=== PATIENT | male | born 1985 | race Caucasian/White ===

== ENCOUNTER 2023-09-17 22:21 | Emergency (ER) | payer OTHER ==
[~2023-09-17] VITALS: Ht 177.8 cm; Wt 108.9 kg
[2023-09-17] MEDS ORDERED: METFORMIN HYD1000 MG PO (22:49)
[2023-09-17] MEDS ORDERED: TRULICITY3 MG/0.5 M SQ (22:50)
[2023-09-17] MEDS ORDERED: TRULICITY1.5 MG/0.5 SC (22:50)
[2023-09-17] MEDS ORDERED: FARXIGA10 M1 PO (22:51)
[2023-09-17] MEDS ORDERED: NURTEC ODT75 MG PO (22:51)
[2023-09-17] MEDS ORDERED: VITAMIN B-121000 MC2 PO (22:52)
[2023-09-17] MEDS ORDERED: EMGALITY S120 MG/1 M SQ (22:52)
[2023-09-17] MEDS ORDERED: D3-200050 MCG PO (22:53)
[2023-09-18] MEDS ORDERED: AMOX-CLAV 875-1 EACH PO (00:29)
[2023-09-18] MEDS ORDERED: PREDNISONE50 MG PO (00:48)
== END 2023-09-18 02:00 | disposition home or self-care (01) ==
LOC: ED 22:21
DX: J02.8 Acute pharyngitis due to other specified organisms (principal); E11.9 Type 2 diabetes mellitus without complications; G43.909 Migraine, unspecified, not intractable, without status migrainosus; Z88.8 Allergy status to other drugs, medicaments and biological substances; Z20.822 Contact with and (suspected) exposure to COVID-19